=== PATIENT | female | born 1940 | race Caucasian/White ===

== ENCOUNTER → 2016-12-08 | Outpatient (CLI) | payer MEDICARE, BC, MEDICAID ==
[2014-04-24 09:17] VITALS: BP 142/66
[~2016-12-08] MED LIST: ATIVAN0.5 MG PO; CALCIUM 600600 M2 PO; COLACE 100100 MG/CAP PO; MIRALAX 17GM PK1 PKT PO; MULTIPLE VITAMI1 TAB PO; MYLANTA 150 ML150 M1 PO; NORVASC 5MG5 MG/TAB PO; PRAVASTATIN SOD40 MG PO; PROZAC20 MG PO; SYNTHROID0.075 MG PO; TENORMIN25 MG PO; TRAZODONE HCL50 MG PO; TYLENOL 650MG650 M2 PO; VESICARE PO; ZYPREXA5 MG PO
== END ==
LOC: LAB 06:05
DX: E87.1 Hypo-osmolality and hyponatremia (principal); D64.9 Anemia, unspecified

== ENCOUNTER → 2017-01-07 | Outpatient (CLI) | payer MEDICARE, BC, MEDICAID ==
[2014-04-24 09:17] VITALS: BP 142/66
== END ==
LOC: LAB 05:56
DX: E03.4 Atrophy of thyroid (acquired) (principal)

== ENCOUNTER → 2017-02-09 | Outpatient (CLI) | payer MEDICARE, BC, MEDICAID ==
[2014-04-24 09:17] VITALS: BP 142/66
== END ==
LOC: LAB 07:10
DX: E78.5 Hyperlipidemia, unspecified (principal); I12.9 Hypertensive chronic kidney disease with stage 1 through stage 4 chronic kidney disease, or unspecified chronic kidney disease

== ENCOUNTER → 2017-04-20 | Outpatient (CLI) | payer MEDICARE, BC, MEDICAID ==
[2014-04-24 09:17] VITALS: BP 142/66
== END ==
LOC: LAB 05:15
DX: E03.9 Hypothyroidism, unspecified (principal)

== ENCOUNTER → 2017-05-27 | Outpatient (CLI) | payer MEDICARE, BC, MEDICAID ==
[2014-04-24 09:17] VITALS: BP 142/66
[2017-05-27 06:56] LABS: URINE APPEARANCE CLEAR; URINE BILIRUBIN NEGATIVE (NEGATIVE); URINE BLOOD NEGATIVE (NEGATIVE); URINE COLOR YELLOW; URINE GLUCOSE NEGATIVE (NEGATIVE); URINE KETONE NEGATIVE (NEGATIVE); URINE LEUKOCYTE ESTERASE NEGATIVE (NEGATIVE); URINE NITRATE NEGATIVE (NEGATIVE); URINE PROTEIN(semi-quant) NEGATIVE (NEGATIVE); URINE UROBILINOGEN NORMAL (NORMAL)
== END ==
LOC: LAB 05:49
PROVIDERS: Family Medicine
DX: R41.0 Disorientation, unspecified (principal)

== ENCOUNTER → 2017-11-26 | Outpatient (CLI) | payer MEDICARE, BC, MEDICAID ==
[2014-04-24 09:17] VITALS: BP 142/66
[2017-11-26 18:43] LABS: URINE APPEARANCE CLEAR; URINE BILIRUBIN NEGATIVE (NEGATIVE); URINE BLOOD NEGATIVE (NEGATIVE); URINE COLOR YELLOW; URINE GLUCOSE NEGATIVE (NEGATIVE); URINE KETONE NEGATIVE (NEGATIVE); URINE LEUKOCYTE ESTERASE TRACE (NEGATIVE); URINE NITRATE NEGATIVE (NEGATIVE); URINE PROTEIN(semi-quant) 1+ mg/dL (NEGATIVE); URINE UROBILINOGEN NORMAL (NORMAL)
== END ==
LOC: LAB 16:47
PROVIDERS: Family Medicine
DX: R41.82 Altered mental status, unspecified (principal); R46.89 Other symptoms and signs involving appearance and behavior; Z88.1 Allergy status to other antibiotic agents; Z88.5 Allergy status to narcotic agent; Z88.2 Allergy status to sulfonamides; Z88.8 Allergy status to other drugs, medicaments and biological substances

== ENCOUNTER → 2018-02-09 | Outpatient (CLI) | payer MEDICARE, BC, MEDICAID ==
[2014-04-24 09:17] VITALS: BP 142/66
[2018-02-09 15:10] LABS: EOS # 0.3 (0.04-0.40); HEMATOCRIT 35.1 % (37.0-47.0); HEMOGLOBIN 11.6 g/dL (12.5-16.0); MEAN CELL VOLUME 91 fl (78-100); MEAN CORPUSCULAR HEMOGLOBIN 30 pg (27-31); MEAN CORPUSCULAR HGB CONC 33 g/dL (33-37); MEAN PLATELET VOLUME 10.3 fl (7.4-10.4); MONO # 0.6 (0.20-0.80); NEU # 5.6 (1.40-6.50); PLATELET COUNT 350 K/mm3 (130-400); RED BLOOD COUNT 3.88 M/mm3 (4.10-5.30); RED CELL DISTRIBUTION WIDTH 13.3 % (11.5-14.5); WHITE BLOOD COUNT 8.4 K/mm3 (4.8-10.8)
[2018-02-09 15:45] LABS: ALBUMIN 3.8 g/dL (3.5-5.0); BUN/CREATININE RATIO 13.1 (6.0-26.0); CALCIUM 8.9 mg/dL (8.4-10.2); POTASSIUM 4.4 mmol/L (3.6-5.0); TOTAL BILIRUBIN 0.4 mg/dL (0.2-1.3); TOTAL PROTEIN 6.8 g/dL (6.3-8.2)
== END ==
LOC: LAB 14:22
PROVIDERS: Family Medicine
DX: I12.9 Hypertensive chronic kidney disease with stage 1 through stage 4 chronic kidney disease, or unspecified chronic kidney disease (principal); N18.9 Chronic kidney disease, unspecified

== ENCOUNTER → 2018-03-09 | Outpatient (CLI) | payer MEDICARE, BC, MEDICAID ==
[2014-04-24 09:17] VITALS: BP 142/66
[2018-03-10 01:09] LABS: T3 TOTAL 71 ng/dL (87-178)
== END ==
LOC: LAB 05:20
PROVIDERS: Family Medicine
DX: E03.9 Hypothyroidism, unspecified (principal)

== ENCOUNTER → 2018-03-16 | Outpatient (CLI) | payer MEDICARE, BC, MEDICAID ==
[2014-04-24 09:17] VITALS: BP 142/66
[2018-03-16 13:18] LABS: PH-URINE 6.5 (5.0 - 8.0); URINE APPEARANCE CLEAR; URINE BILIRUBIN NEGATIVE (NEGATIVE); URINE BLOOD NEGATIVE (NEGATIVE); URINE COLOR YELLOW; URINE GLUCOSE NEGATIVE (NEGATIVE); URINE KETONE NEGATIVE (NEGATIVE); URINE LEUKOCYTE ESTERASE NEGATIVE (NEGATIVE); URINE NITRATE NEGATIVE (NEGATIVE); URINE PROTEIN(semi-quant) TRACE mg/dL (NEGATIVE); URINE UROBILINOGEN NORMAL (NORMAL); URINE WBC 0-1 /hpf (0-3)
== END ==
LOC: LAB 12:52
PROVIDERS: Family Medicine
DX: R42 Dizziness and giddiness (principal); R45.1 Restlessness and agitation

== ENCOUNTER → 2018-06-10 | Outpatient (CLI) | payer MEDICARE, BC, MEDICAID ==
[2014-04-24 09:17] VITALS: BP 142/66
== END ==
LOC: LAB 07:20
DX: E03.9 Hypothyroidism, unspecified (principal)

== ENCOUNTER → 2018-06-15 | Outpatient (CLI) | payer MEDICARE, BC, MEDICAID ==
[2014-04-24 09:17] VITALS: BP 142/66
[2018-06-15 12:14] LABS: URINE APPEARANCE CLEAR; URINE BILIRUBIN NEGATIVE (NEGATIVE); URINE COLOR YELLOW; URINE GLUCOSE NEGATIVE (NEGATIVE); URINE KETONE NEGATIVE (NEGATIVE); URINE NITRATE NEGATIVE (NEGATIVE); URINE PROTEIN(semi-quant) 1+ mg/dL (NEGATIVE); URINE UROBILINOGEN NORMAL (NORMAL)
[2018-06-15 12:15] LABS: URINE BLOOD NEGATIVE (NEGATIVE); URINE LEUKOCYTE ESTERASE NEGATIVE (NEGATIVE); URINE WBC 0-1 /hpf (0-3)
== END ==
LOC: LAB 10:55
PROVIDERS: Family Medicine
DX: R41.0 Disorientation, unspecified (principal)

== ENCOUNTER 2018-08-15 23:21 | Emergency (ER) | payer MEDICARE, BC, MEDICAID ==
[~2018-08-15] VITALS: Wt 62.8 kg
[2018-08-15] MEDS ORDERED: COLACE100 M1 PO (23:54)
[2018-08-15] MEDS ORDERED: ARTIFICIAL TEAR1512 OP (23:54)
[2018-08-15] MEDS ORDERED: TIROSINT75 MC1 PO (23:56)
[2018-08-15] MEDS ORDERED: LOPRESSOR 225 MG/TAB PO (23:56)
[2018-08-15] MEDS ORDERED: AMLODIPINE BESYL5 MG PO (23:57)
[2018-08-15] MEDS ORDERED: MUCINEX 60600 MG/TA1 PO (23:57)
[2018-08-15] MEDS ORDERED: FLUOXETINE HCL20 MG PO (23:57)
[2018-08-15] MEDS ORDERED: ZYRTEC ALLERGY10 MG PO (23:58)
[2018-08-16 00:24] LABS: ALBUMIN 3.9 g/dL (3.5-5.0); POTASSIUM 4.4 mmol/L (3.6-5.0); TOTAL BILIRUBIN 0.4 mg/dL (0.2-1.3); TOTAL PROTEIN 6.6 g/dL (6.3-8.2)
[2018-08-16 00:29] LABS: HEMATOCRIT 34.3 % (37.0-47.0); HEMOGLOBIN 11.4 g/dL (12.5-16.0); MEAN CELL VOLUME 88 fl (78-100); MEAN CORPUSCULAR HEMOGLOBIN 29 pg (27-31); MEAN CORPUSCULAR HGB CONC 33 g/dL (33-37); MEAN PLATELET VOLUME 9.8 fl (7.4-10.4); PLATELET COUNT 302 K/mm3 (130-400); RED BLOOD COUNT 3.92 M/mm3 (4.10-5.30); RED CELL DISTRIBUTION WIDTH 13.6 % (11.5-14.5); WHITE BLOOD COUNT 7.7 K/mm3 (4.8-10.8)
[2018-08-16 00:32] LABS: LYMPHOCYTE 42 % (20-51); MONOCYTE 7 % (3-10); NEUTROPHILS 43 % (42-75)
[2018-08-16 00:37] LABS: URINE WBC 0 /hpf (0-3)
[2018-08-16 00:46] LABS: PH-URINE 7.5 (5.0 - 8.0); URINE APPEARANCE CLEAR; URINE BILIRUBIN NEGATIVE (NEGATIVE); URINE BLOOD NEGATIVE (NEGATIVE); URINE COLOR YELLOW; URINE GLUCOSE NEGATIVE (NEGATIVE); URINE KETONE NEGATIVE (NEGATIVE); URINE LEUKOCYTE ESTERASE NEGATIVE (NEGATIVE); URINE NITRATE NEGATIVE (NEGATIVE); URINE PROTEIN(semi-quant) NEGATIVE (NEGATIVE); URINE UROBILINOGEN NORMAL (NORMAL)
[2018-08-16 03:02] VITALS: BP 146/79
== END 2018-08-16 03:02 | disposition home or self-care (01) ==
LOC: ED 23:21
PROVIDERS: Nurse Practitioner
DX: J98.9 Respiratory disorder, unspecified (principal); B97.89 Other viral agents as the cause of diseases classified elsewhere; E87.1 Hypo-osmolality and hyponatremia; J44.9 Chronic obstructive pulmonary disease, unspecified; Z87.891 Personal history of nicotine dependence; E03.9 Hypothyroidism, unspecified; I12.9 Hypertensive chronic kidney disease with stage 1 through stage 4 chronic kidney disease, or unspecified chronic kidney disease; N18.9 Chronic kidney disease, unspecified; Z90.5 Acquired absence of kidney; F32.9 Major depressive disorder, single episode, unspecified; F41.9 Anxiety disorder, unspecified; K59.00 Constipation, unspecified; Z88.1 Allergy status to other antibiotic agents; Z88.2 Allergy status to sulfonamides; Z88.8 Allergy status to other drugs, medicaments and biological substances; Z79.899 Other long term (current) drug therapy
CPT/HCPCS: J2930; J7030

== ENCOUNTER → 2018-08-25 | Outpatient (CLI) | payer MEDICARE, BC, MEDICAID ==
[2018-08-16 03:02] VITALS: BP 146/79
[~2018-08-25] MED LIST changes: +AMLODIPINE BESYL5 MG PO; +ARTIFICIAL TEAR1512 OP; +COLACE100 M1 PO; +FLUOXETINE HCL20 MG PO; +LOPRESSOR 225 MG/TAB PO; +MUCINEX 60600 MG/TA1 PO; +TIROSINT75 MC1 PO; +ZYRTEC ALLERGY10 MG PO
[2018-08-25 06:14] LABS: ALBUMIN 3.4 g/dL (3.5-5.0); CALCIUM 9.2 mg/dL (8.4-10.2); TOTAL BILIRUBIN 0.5 mg/dL (0.2-1.3); TOTAL PROTEIN 6.2 g/dL (6.3-8.2)
[2018-08-25 06:15] LABS: HEMATOCRIT 32.7 % (37.0-47.0); HEMOGLOBIN 10.8 g/dL (12.5-16.0); MEAN PLATELET VOLUME 9.8 fl (7.4-10.4); RED BLOOD COUNT 3.75 M/mm3 (4.10-5.30); RED CELL DISTRIBUTION WIDTH 13.4 % (11.5-14.5); WHITE BLOOD COUNT 9.5 K/mm3 (4.8-10.8)
== END ==
LOC: LAB 05:12
PROVIDERS: Family Medicine
DX: E87.1 Hypo-osmolality and hyponatremia (principal); D64.9 Anemia, unspecified

== ENCOUNTER → 2018-09-12 | Outpatient (CLI) | payer MEDICARE, BC, MEDICAID ==
[2018-08-16 03:02] VITALS: BP 146/79
[2018-09-12 10:34] LABS: EOS # 0.5 (0.04-0.40); EOS % 5.3 % (1.0-5.0); HEMATOCRIT 33.1 % (37.0-47.0); LYMPH# 3.1 (1.50-4.00); MEAN CELL VOLUME 88 fl (78-100); MEAN CORPUSCULAR HEMOGLOBIN 29 pg (27-31); MEAN CORPUSCULAR HGB CONC 33 g/dL (33-37); MEAN PLATELET VOLUME 10.2 fl (7.4-10.4); MONO # 0.7 (0.20-0.80); NEU # 4.3 (1.40-6.50); PLATELET COUNT 353 K/mm3 (130-400); RED BLOOD COUNT 3.75 M/mm3 (4.10-5.30); RED CELL DISTRIBUTION WIDTH 13.6 % (11.5-14.5); WHITE BLOOD COUNT 8.6 K/mm3 (4.8-10.8)
[2018-09-12 10:39] LABS: ALBUMIN 3.2 g/dL (3.5-5.0); CALCIUM 9.3 mg/dL (8.4-10.2); POTASSIUM 4.5 mmol/L (3.6-5.0); TOTAL BILIRUBIN 0.4 mg/dL (0.2-1.3); TOTAL PROTEIN 5.8 g/dL (6.3-8.2)
== END ==
LOC: LAB 07:10
PROVIDERS: Family Medicine
DX: I12.9 Hypertensive chronic kidney disease with stage 1 through stage 4 chronic kidney disease, or unspecified chronic kidney disease (principal); N18.9 Chronic kidney disease, unspecified; E03.9 Hypothyroidism, unspecified; D64.9 Anemia, unspecified

== ENCOUNTER 2018-11-07 15:55 | Emergency (ER) | payer MEDICARE, BC, MEDICAID ==
[~2018-11-07] VITALS: Ht 165.1 cm; Wt 61.8 kg
[2018-11-07] MEDS ORDERED: TYLOPHEN500 M2 PO (16:22)
[2018-11-07] MEDS ORDERED: ALBUTEROL2.5 MG/3 M IH (16:23)
[2018-11-07] MEDS ORDERED: FLEET ENEM1 BOT/133 RC ×2 (16:24)
[2018-11-07] MEDS ORDERED: DULCOLAX S10 MG/SUPP RC (16:28)
[2018-11-07] MEDS ORDERED: BIOTENE DRY MO237 ML MM (16:29)
[2018-11-07] MEDS ORDERED: CHILDREN'S ASPI81 M1 PO (16:30)
[2018-11-07 17:58] LABS: EOS # 0.4 (0.04-0.40); EOS % 4.1 % (1.0-5.0); HEMATOCRIT 31.1 % (37.0-47.0); HEMOGLOBIN 10.3 g/dL (12.5-16.0); LYMPH# 3.3 (1.50-4.00); MEAN CELL VOLUME 87 fl (78-100); MEAN CORPUSCULAR HEMOGLOBIN 29 pg (27-31); MEAN CORPUSCULAR HGB CONC 33 g/dL (33-37); MONO # 0.8 (0.20-0.80); NEU # 6.1 (1.40-6.50); PLATELET COUNT 373 K/mm3 (130-400); RED BLOOD COUNT 3.56 M/mm3 (4.10-5.30); WHITE BLOOD COUNT 10.8 K/mm3 (4.8-10.8)
[2018-11-07 18:05] LABS: ALBUMIN 3.4 g/dL (3.5-5.0); CALCIUM 8.9 mg/dL (8.4-10.2); POTASSIUM 4.2 mmol/L (3.6-5.0); TOTAL BILIRUBIN 0.3 mg/dL (0.2-1.3); TOTAL PROTEIN 6.3 g/dL (6.3-8.2)
[2018-11-07 18:52] LABS: URINE APPEARANCE CLEAR; URINE COLOR YELLOW; URINE GLUCOSE NEGATIVE (NEGATIVE); URINE KETONE NEGATIVE (NEGATIVE); URINE PROTEIN(semi-quant) TRACE mg/dL (NEGATIVE)
[2018-11-07 18:53] LABS: URINE BILIRUBIN NEGATIVE (NEGATIVE); URINE BLOOD NEGATIVE (NEGATIVE); URINE LEUKOCYTE ESTERASE NEGATIVE (NEGATIVE); URINE NITRATE NEGATIVE (NEGATIVE); URINE UROBILINOGEN NORMAL (NORMAL); URINE WBC 0-1 /hpf (0-3)
[2018-11-07 23:43] VITALS: BP 159/68
== END 2018-11-07 20:23 | disposition home or self-care (01) ==
LOC: ED 15:55
PROVIDERS: Nurse Practitioner
DX: S22.42XA Multiple fractures of ribs, left side, initial encounter for closed fracture (principal); M25.559 Pain in unspecified hip; I10 Essential (primary) hypertension; E78.5 Hyperlipidemia, unspecified; F31.9 Bipolar disorder, unspecified; F41.9 Anxiety disorder, unspecified; J44.9 Chronic obstructive pulmonary disease, unspecified; D64.9 Anemia, unspecified; F03.90 Unspecified dementia, unspecified severity, without behavioral disturbance, psychotic disturbance, mood disturbance, and anxiety; Z90.49 Acquired absence of other specified parts of digestive tract; Z85.528 Personal history of other malignant neoplasm of kidney; W17.89XA Other fall from one level to another, initial encounter
CPT/HCPCS: J7030

== ENCOUNTER → 2018-11-17 | Outpatient (CLI) | payer MEDICARE, BC, MEDICAID ==
[~2018-11-17] VITALS: Ht 165.1 cm; Wt 61.8 kg
[~2018-11-17] MED LIST changes: +ALBUTEROL2.5 MG/3 M IH; +BIOTENE DRY MO237 ML MM; +CHILDREN'S ASPI81 M1 PO; +DULCOLAX S10 MG/SUPP RC; +FLEET ENEM1 BOT/133 RC; +TYLOPHEN500 M2 PO
[2018-11-17 08:54] VITALS: BP 144/82
[2018-11-17 12:40] LABS: CALCIUM 9.2 mg/dL (8.4-10.2); POTASSIUM 3.8 mmol/L (3.6-5.0)
== END ==
LOC: AMSURD 07:54 → LAB 08:18 → AMSURD 08:18
PROVIDERS: Family Medicine
DX: E87.1 Hypo-osmolality and hyponatremia (principal)
CPT/HCPCS: J7030

== ENCOUNTER → 2018-12-12 | Outpatient (CLI) | payer MEDICARE, BC, MEDICAID ==
[2018-11-17 08:54] VITALS: BP 144/82
[2018-12-12 10:52] LABS: ALBUMIN 3.9 g/dL (3.4-4.8); CALCIUM 10.2 mg/dL (8.4-10.2); POTASSIUM 4.1 mmol/L (3.5-5.1); TOTAL BILIRUBIN 0.4 mg/dL (0.2-1.2)
== END ==
LOC: LAB 06:15
PROVIDERS: Family Medicine
DX: I10 Essential (primary) hypertension (principal); E87.1 Hypo-osmolality and hyponatremia; R06.02 Shortness of breath

== ENCOUNTER → 2018-12-15 | Outpatient (CLI) | payer MEDICARE, BC, MEDICAID ==
[2018-11-17 08:54] VITALS: BP 144/82
[2018-12-15 07:22] LABS: CALCIUM 9.6 mg/dL (8.4-10.2); POTASSIUM 4.1 mmol/L (3.5-5.1)
== END ==
LOC: LAB 05:25
PROVIDERS: Family Medicine
DX: E87.1 Hypo-osmolality and hyponatremia (principal)

== ENCOUNTER → 2019-01-26 | Outpatient (CLI) | payer MEDICARE, BC, MEDICAID ==
[2018-11-17 08:54] VITALS: BP 144/82
[2019-01-26 15:22] LABS: EOS # 0.4 (0.04-0.40); EOS % 4.1 % (1.0-5.0); HEMATOCRIT 30.2 % (37.0-47.0); HEMOGLOBIN 9.8 g/dL (12.5-16.0); LYMPH# 2.7 (1.50-4.00); MEAN CELL VOLUME 92 fl (78-100); MEAN CORPUSCULAR HEMOGLOBIN 30 pg (27-31); MEAN CORPUSCULAR HGB CONC 33 g/dL (33-37); MEAN PLATELET VOLUME 9.2 fl (7.4-10.4); MONO # 0.6 (0.20-0.80); NEU # 5.7 (1.40-6.50); PLATELET COUNT 371 K/mm3 (130-400); RED BLOOD COUNT 3.27 M/mm3 (4.10-5.30); RED CELL DISTRIBUTION WIDTH 14.3 % (11.5-14.5); WHITE BLOOD COUNT 9.4 K/mm3 (4.8-10.8)
[2019-01-26 15:25] LABS: POTASSIUM 4.5 mmol/L (3.5-5.1)
[2019-01-26 15:26] LABS: CALCIUM 8.9 mg/dL (8.3-10.5)
[2019-01-26 17:09] LABS: URINE APPEARANCE HAZY; URINE BILIRUBIN NEGATIVE (NEGATIVE); URINE BLOOD NEGATIVE (NEGATIVE); URINE COLOR YELLOW; URINE GLUCOSE NEGATIVE (NEGATIVE); URINE KETONE TR (NEGATIVE); URINE LEUKOCYTE ESTERASE NEGATIVE (NEGATIVE); URINE NITRATE NEGATIVE (NEGATIVE); URINE PROTEIN(semi-quant) 1+ mg/dL (NEGATIVE); URINE UROBILINOGEN NORMAL (NORMAL)
== END ==
LOC: LAB 15:09
PROVIDERS: Family Medicine
DX: R50.9 Fever, unspecified (principal); R32 Unspecified urinary incontinence

== ENCOUNTER → 2019-02-03 | Outpatient (CLI) | payer MEDICARE, BC, MEDICAID ==
[2018-11-17 08:54] VITALS: BP 144/82
[2019-02-03 11:27] LABS: PH-URINE 6.5 (5.0 - 8.0); URINE APPEARANCE CLEAR; URINE BILIRUBIN NEGATIVE (NEGATIVE); URINE BLOOD NEGATIVE (NEGATIVE); URINE COLOR YELLOW; URINE GLUCOSE NEGATIVE (NEGATIVE); URINE KETONE NEGATIVE (NEGATIVE); URINE LEUKOCYTE ESTERASE NEGATIVE (NEGATIVE); URINE NITRATE NEGATIVE (NEGATIVE); URINE PROTEIN(semi-quant) TRACE mg/dL (NEGATIVE); URINE UROBILINOGEN NORMAL (NORMAL); URINE WBC 0-1 /hpf (0-3)
== END ==
LOC: LAB 10:58
PROVIDERS: Family Medicine
DX: N39.0 Urinary tract infection, site not specified (principal)

== ENCOUNTER → 2019-02-25 | Outpatient (CLI) | payer MEDICARE, BC, MEDICAID ==
[2018-11-17 08:54] VITALS: BP 144/82
[2019-02-25 11:07] LABS: URINE APPEARANCE HAZY; URINE COLOR YELLOW
[2019-02-25 11:08] LABS: URINE BILIRUBIN NEGATIVE (NEGATIVE); URINE BLOOD NEGATIVE (NEGATIVE); URINE GLUCOSE NEGATIVE (NEGATIVE); URINE KETONE NEGATIVE (NEGATIVE); URINE LEUKOCYTE ESTERASE 1+ (NEGATIVE); URINE NITRATE NEGATIVE (NEGATIVE); URINE PROTEIN(semi-quant) TRACE mg/dL (NEGATIVE); URINE UROBILINOGEN NORMAL (NORMAL); URINE WBC 16-30 /hpf (0-3)
== END ==
LOC: LAB 02:00
PROVIDERS: Family Medicine
DX: N39.0 Urinary tract infection, site not specified (principal); R41.0 Disorientation, unspecified

== ENCOUNTER → 2019-02-27 | Outpatient (CLI) | payer MEDICARE, BC, MEDICAID ==
[2018-11-17 08:54] VITALS: BP 144/82
== END ==
LOC: RAD 10:01
DX: I67.82 Cerebral ischemia (principal); S09.90XA Unspecified injury of head, initial encounter; R41.0 Disorientation, unspecified; W19.XXXA Unspecified fall, initial encounter

== ENCOUNTER → 2019-03-25 | Outpatient (CLI) | payer MEDICARE, BC, MEDICAID ==
[2018-11-17 08:54] VITALS: BP 144/82
[2019-03-25 15:32] LABS: EOS # 0.4 (0.04-0.40); EOS % 3.9 % (1.0-5.0); HEMATOCRIT 34.7 % (37.0-47.0); HEMOGLOBIN 11.3 g/dL (12.5-16.0); LYMPH# 2.5 (1.50-4.00); MEAN CELL VOLUME 92 fl (78-100); MEAN CORPUSCULAR HEMOGLOBIN 30 pg (27-31); MEAN CORPUSCULAR HGB CONC 33 g/dL (33-37); MEAN PLATELET VOLUME 9.6 fl (7.4-10.4); MONO # 0.8 (0.20-0.80); NEU # 7.6 (1.40-6.50); PLATELET COUNT 370 K/mm3 (130-400); RED BLOOD COUNT 3.78 M/mm3 (4.10-5.30); RED CELL DISTRIBUTION WIDTH 13.4 % (11.5-14.5); WHITE BLOOD COUNT 11.3 K/mm3 (4.8-10.8)
== END ==
LOC: LAB 15:10
PROVIDERS: Family Medicine
DX: R41.0 Disorientation, unspecified (principal)

== ENCOUNTER → 2019-03-26 | Outpatient (CLI) | payer MEDICARE, BC, MEDICAID ==
[2018-11-17 08:54] VITALS: BP 144/82
[2019-03-26 13:00] LABS: URINE APPEARANCE HAZY; URINE COLOR YELLOW
[2019-03-26 13:01] LABS: URINE BILIRUBIN NEGATIVE (NEGATIVE); URINE BLOOD TRACE (NEGATIVE); URINE GLUCOSE NEGATIVE (NEGATIVE); URINE KETONE NEGATIVE (NEGATIVE); URINE LEUKOCYTE ESTERASE 1+ (NEGATIVE); URINE NITRATE NEGATIVE (NEGATIVE); URINE PROTEIN(semi-quant) TRACE mg/dL (NEGATIVE); URINE UROBILINOGEN NORMAL (NORMAL)
[2019-03-26 13:02] LABS: URINE MUCUS PRESENT (NOT PRESENT)
== END ==
LOC: LAB 10:32
PROVIDERS: Family Medicine
DX: N39.0 Urinary tract infection, site not specified (principal)

== ENCOUNTER 2019-04-27 18:00 | Emergency (ER) | payer MEDICARE, BC, MEDICAID ==
[~2019-04-27] VITALS: Wt 57.2 kg
[~2019-04-27 18:00] MED LIST changes: +ATIVAN1 M1 PO; +PYRIDIUM100 M1 PO; +SYNTHROID0.05 MG PO; +VENLAFAXINE HCL75 M3 PO
[2019-04-27 18:53] LABS: EOS # 0.3 (0.04-0.40); HEMATOCRIT 31.2 % (37.0-47.0); HEMOGLOBIN 10.1 g/dL (12.5-16.0); LYMPH# 2.2 (1.50-4.00); MEAN CELL VOLUME 93 fl (78-100); MEAN CORPUSCULAR HEMOGLOBIN 30 pg (27-31); MEAN CORPUSCULAR HGB CONC 32 g/dL (33-37); MEAN PLATELET VOLUME 9.2 fl (7.4-10.4); MONO # 0.5 (0.20-0.80); NEU # 4.3 (1.40-6.50); PLATELET COUNT 347 K/mm3 (130-400); RED BLOOD COUNT 3.37 M/mm3 (4.10-5.30); RED CELL DISTRIBUTION WIDTH 13.9 % (11.5-14.5); WHITE BLOOD COUNT 7.4 K/mm3 (4.8-10.8)
[2019-04-27 19:02] LABS: ALBUMIN 3.5 g/dL (3.4-4.8); POTASSIUM 4.5 mmol/L (3.5-5.1)
[2019-04-27 19:03] LABS: CALCIUM 9.2 mg/dL (8.3-10.5)
[2019-04-27 19:05] LABS: TOTAL PROTEIN 6.3 g/dL (6.2-8.1)
[2019-04-27 19:06] LABS: TOTAL BILIRUBIN 0.3 mg/dL (0.2-1.2)
[2019-04-27 19:44] LABS: URINE APPEARANCE CLEAR; URINE BILIRUBIN NEGATIVE (NEGATIVE); URINE BLOOD NEGATIVE (NEGATIVE); URINE COLOR YELLOW; URINE GLUCOSE NEGATIVE (NEGATIVE); URINE KETONE NEGATIVE (NEGATIVE); URINE LEUKOCYTE ESTERASE NEGATIVE (NEGATIVE); URINE NITRATE NEGATIVE (NEGATIVE); URINE PROTEIN(semi-quant) 1+ mg/dL (NEGATIVE); URINE UROBILINOGEN NORMAL (NORMAL)
[2019-04-27 21:00] VITALS: BP 128/61
== END 2019-04-27 21:00 ==
LOC: ED 18:00
PROVIDERS: Nurse Practitioner Family
DX: S50.02XA Contusion of left elbow, initial encounter (principal); F03.90 Unspecified dementia, unspecified severity, without behavioral disturbance, psychotic disturbance, mood disturbance, and anxiety; R40.2410 Glasgow coma scale score 13-15, unspecified time; I10 Essential (primary) hypertension; F17.210 Nicotine dependence, cigarettes, uncomplicated; F41.9 Anxiety disorder, unspecified; F32.9 Major depressive disorder, single episode, unspecified; Z90.5 Acquired absence of kidney; Z90.49 Acquired absence of other specified parts of digestive tract; Z98.890 Other specified postprocedural states; W19.XXXA Unspecified fall, initial encounter; Y92.129 Unspecified place in nursing home as the place of occurrence of the external cause

== ENCOUNTER 2019-04-29 22:16 | Emergency (ER) | payer MEDICARE, BC, MEDICAID ==
[2019-04-30] MEDS ORDERED: HALDOL 1MG T1 MG/TAB PO (00:17)
[2019-04-30 00:35] VITALS: BP 148/86
== END 2019-04-30 00:40 | disposition home or self-care (01) ==
LOC: ED 22:16
DX: S01.112A Laceration without foreign body of left eyelid and periocular area, initial encounter (principal); T50.995A Adverse effect of other drugs, medicaments and biological substances, initial encounter; F03.91 Unspecified dementia, unspecified severity, with behavioral disturbance; F31.9 Bipolar disorder, unspecified; F41.9 Anxiety disorder, unspecified; Z90.5 Acquired absence of kidney; Z85.528 Personal history of other malignant neoplasm of kidney; W18.30XA Fall on same level, unspecified, initial encounter; Y92.099 Unspecified place in other non-institutional residence as the place of occurrence of the external cause

== ENCOUNTER → 2019-06-14 | Outpatient (CLI) | payer MEDICARE, BC, MEDICAID ==
[2019-05-01 17:05] VITALS: BP 141/76
[~2019-06-14] MED LIST changes: +HALDOL 1MG T1 MG/TAB PO
== END ==
LOC: LAB 05:28
DX: E03.9 Hypothyroidism, unspecified (principal)

== ENCOUNTER → 2019-06-27 | Outpatient (CLI) | payer MEDICARE, BC, MEDICAID ==
[2019-05-01 17:05] VITALS: BP 141/76
[2019-06-27 07:01] LABS: URINE APPEARANCE CLEAR; URINE BILIRUBIN NEGATIVE (NEGATIVE); URINE BLOOD NEGATIVE (NEGATIVE); URINE COLOR YELLOW; URINE GLUCOSE NEGATIVE (NEGATIVE); URINE KETONE NEGATIVE (NEGATIVE); URINE LEUKOCYTE ESTERASE NEGATIVE (NEGATIVE); URINE NITRATE NEGATIVE (NEGATIVE); URINE PROTEIN(semi-quant) TRACE mg/dL (NEGATIVE); URINE UROBILINOGEN NORMAL (NORMAL); URINE WBC 0-1 /hpf (0-3)
== END ==
LOC: LAB 02:47
PROVIDERS: Family Medicine
DX: R41.82 Altered mental status, unspecified (principal)

== ENCOUNTER 2019-08-07 13:56 | Emergency (ER) | payer MEDICARE, BC, MEDICAID ==
[2019-08-07] MEDS ORDERED: LOPRESSOR 225 MG/TAB PO (16:23)
[2019-08-07 16:49] LABS: EOS # 0.4 (0.04-0.40); EOS % 3.5 % (1.0-5.0); HEMATOCRIT 36.2 % (37.0-47.0); HEMOGLOBIN 11.5 g/dL (12.5-16.0); LYMPH# 2.9 (1.50-4.00); MEAN CELL VOLUME 90 fl (78-100); MEAN CORPUSCULAR HEMOGLOBIN 29 pg (27-31); MEAN CORPUSCULAR HGB CONC 32 g/dL (33-37); MEAN PLATELET VOLUME 10.4 fl (7.4-10.4); MONO # 0.8 (0.20-0.80); NEU # 5.9 (1.40-6.50); PLATELET COUNT 266 K/mm3 (130-400); RED BLOOD COUNT 4.02 M/mm3 (4.10-5.30); RED CELL DISTRIBUTION WIDTH 13.9 % (11.5-14.5)
[2019-08-07 16:55] LABS: ALBUMIN 3.7 g/dL (3.4-4.8); POTASSIUM 4.2 mmol/L (3.5-5.1)
[2019-08-07 16:56] LABS: CALCIUM 9.6 mg/dL (8.3-10.5)
[2019-08-07] MEDS ORDERED: HALDOL .5M0.5 MG/TAB PO (16:56)
[2019-08-07 16:59] LABS: TOTAL BILIRUBIN 0.3 mg/dL (0.2-1.2)
[2019-08-07 17:50] VITALS: BP 122/70
[2019-08-07 18:03] LABS: URINE APPEARANCE CLEAR; URINE BILIRUBIN NEGATIVE (NEGATIVE); URINE BLOOD TRACE (NEGATIVE); URINE COLOR YELLOW; URINE GLUCOSE NEGATIVE (NEGATIVE); URINE KETONE NEGATIVE (NEGATIVE); URINE LEUKOCYTE ESTERASE NEGATIVE (NEGATIVE); URINE NITRATE NEGATIVE (NEGATIVE); URINE PROTEIN(semi-quant) 1+ mg/dL (NEGATIVE); URINE UROBILINOGEN NORMAL (NORMAL)
[2019-08-07 18:04] LABS: URINE MUCUS PRESENT (NOT PRESENT)
== END 2019-08-07 17:07 | disposition other institution (70) ==
LOC: ED 13:56
PROVIDERS: Nurse Practitioner Primary Care; Physician Assistant
DX: J44.1 Chronic obstructive pulmonary disease with (acute) exacerbation (principal); J18.9 Pneumonia, unspecified organism; N28.9 Disorder of kidney and ureter, unspecified; I10 Essential (primary) hypertension; E78.5 Hyperlipidemia, unspecified; E03.9 Hypothyroidism, unspecified; F31.9 Bipolar disorder, unspecified; F03.90 Unspecified dementia, unspecified severity, without behavioral disturbance, psychotic disturbance, mood disturbance, and anxiety; Z87.891 Personal history of nicotine dependence
CPT/HCPCS: J2930

== ENCOUNTER 2019-08-07 17:07 | Inpatient (IN) | payer MEDICARE, BC, MEDICAID ==
[~2019-08-07] VITALS: Ht 162.6 cm; Wt 54.0 kg
[~2019-08-07 17:07] MED LIST changes: +HALDOL .5M0.5 MG/TAB PO
[2019-08-07 18:16] VITALS: BP 131/64
[2019-08-07 18:17] VITALS: BP 131/64
[2019-08-07 22:20] VITALS: BP 110/62
[2019-08-08 02:40] VITALS: BP 105/65
[2019-08-08 06:30] VITALS: BP 134/73
[2019-08-08 06:56] LABS: HEMATOCRIT 30.9 % (37.0-47.0); HEMOGLOBIN 9.9 g/dL (12.5-16.0); LYMPH# 0.9 (1.50-4.00); MEAN CELL VOLUME 90 fl (78-100); MEAN CORPUSCULAR HEMOGLOBIN 29 pg (27-31); MEAN CORPUSCULAR HGB CONC 32 g/dL (33-37); MEAN PLATELET VOLUME 10.7 fl (7.4-10.4); MONO # 0.1 (0.20-0.80); NEU # 3.4 (1.40-6.50); PLATELET COUNT 247 K/mm3 (130-400); RED BLOOD COUNT 3.45 M/mm3 (4.10-5.30); RED CELL DISTRIBUTION WIDTH 13.8 % (11.5-14.5); WHITE BLOOD COUNT 4.4 K/mm3 (4.8-10.8)
[2019-08-08 07:05] LABS: CALCIUM 8.6 mg/dL (8.3-10.5)
[2019-08-08 10:06] VITALS: BP 160/80
[2019-08-08 14:15] VITALS: BP 149/79
[2019-08-08 18:00] VITALS: BP 162/85
[2019-08-08 22:24] VITALS: BP 127/73
[2019-08-09 02:00] VITALS: BP 139/73
[2019-08-09 06:06] VITALS: BP 153/80
[2019-08-09 07:55] LABS: HEMOGLOBIN 9.7 g/dL (12.5-16.0); MEAN CELL VOLUME 88 fl (78-100); MEAN CORPUSCULAR HEMOGLOBIN 29 pg (27-31); MEAN CORPUSCULAR HGB CONC 32 g/dL (33-37); MEAN PLATELET VOLUME 10.6 fl (7.4-10.4); PLATELET COUNT 274 K/mm3 (130-400); RED CELL DISTRIBUTION WIDTH 13.8 % (11.5-14.5); WHITE BLOOD COUNT 12.5 K/mm3 (4.8-10.8)
[2019-08-09 07:59] LABS: POTASSIUM 3.6 mmol/L (3.5-5.1)
[2019-08-09 08:01] LABS: CALCIUM 8.8 mg/dL (8.3-10.5)
[2019-08-09 08:03] LABS: BAND 5 % (0-10); LYMPHOCYTE 7 % (20-51); MONOCYTE 4 % (3-10); NEUTROPHILS 84 % (42-75)
[2019-08-09 10:20] VITALS: BP 156/73
[2019-08-09 14:00] VITALS: BP 161/84
[2019-08-09 18:00] VITALS: BP 162/68
[2019-08-09 21:52] VITALS: BP 118/79
[2019-08-10 01:39] VITALS: BP 152/82
[2019-08-10 05:48] LABS: HEMATOCRIT 32.4 % (37.0-47.0); HEMOGLOBIN 10.8 g/dL (12.5-16.0); MEAN CELL VOLUME 87 fl (78-100); MEAN CORPUSCULAR HEMOGLOBIN 29 pg (27-31); MEAN CORPUSCULAR HGB CONC 33 g/dL (33-37); PLATELET COUNT 314 K/mm3 (130-400); RED BLOOD COUNT 3.74 M/mm3 (4.10-5.30); RED CELL DISTRIBUTION WIDTH 13.8 % (11.5-14.5); WHITE BLOOD COUNT 14.8 K/mm3 (4.8-10.8)
[2019-08-10 05:57] VITALS: BP 139/69
[2019-08-10 06:31] LABS: POTASSIUM 2.9 mmol/L (3.5-5.1)
[2019-08-10 06:34] LABS: LYMPHOCYTE 10 % (20-51); MONOCYTE 2 % (3-10); NEUTROPHILS 88 % (42-75); NUCLEATED RED BLOOD CELL 1 (0-6); OVALOCYTES 1+; TEAR DROP CELLS 1+
[2019-08-10 10:29] VITALS: BP 143/78
[2019-08-10] MEDS ORDERED: ASPIRIN 32325 MG/TAB PO (11:46)
[2019-08-10] MEDS ORDERED: LOPRESSOR 225 MG/TAB PO (11:46)
[2019-08-10] MEDS ORDERED: AUGMENTIN 875-1 EAC1 PO (11:47)
[2019-08-10] MEDS ORDERED: PREDNISONE20 M1 PO (11:47)
[2019-08-10] MEDS ORDERED: MUCUS RELIEF400 M1 PO (11:47)
[2019-08-10 12:31] VITALS: BP 143/78
[2019-08-10 13:08] LABS: POTASSIUM 3.6 mmol/L (3.5-5.1)
[2019-08-10 13:09] LABS: CALCIUM 9.1 mg/dL (8.3-10.5)
[2019-08-10 14:19] VITALS: BP 163/75
== END 2019-08-10 14:55 | disposition home or self-care (01) | DRG 192 ==
LOC: MED/SURG 17:07
PROVIDERS: Nurse Practitioner Primary Care; ADMIT Physician Assistant
DX: J44.1 Chronic obstructive pulmonary disease with (acute) exacerbation (principal); E03.9 Hypothyroidism, unspecified; I48.91 Unspecified atrial fibrillation; I10 Essential (primary) hypertension; E05.90 Thyrotoxicosis, unspecified without thyrotoxic crisis or storm; F03.90 Unspecified dementia, unspecified severity, without behavioral disturbance, psychotic disturbance, mood disturbance, and anxiety; N28.9 Disorder of kidney and ureter, unspecified; E78.5 Hyperlipidemia, unspecified; F31.9 Bipolar disorder, unspecified; E86.0 Dehydration; R74.0 Nonspecific elevation of levels of transaminase and lactic acid dehydrogenase [LDH]; Z90.5 Acquired absence of kidney; Z85.528 Personal history of other malignant neoplasm of kidney; Z87.891 Personal history of nicotine dependence; Z88.2 Allergy status to sulfonamides; Z88.5 Allergy status to narcotic agent; Z88.1 Allergy status to other antibiotic agents
CPT/HCPCS: J1650; J1940; J2543; J2930; J7030

== ENCOUNTER → 2019-08-11 | Outpatient (CLI) | payer MEDICARE, BC, MEDICAID ==
[2019-08-10 14:19] VITALS: BP 163/75
[~2019-08-11] MED LIST changes: +ASPIRIN 32325 MG/TAB PO; +AUGMENTIN 875-1 EAC1 PO; +MUCUS RELIEF400 M1 PO; +PREDNISONE20 M1 PO
== END ==
LOC: LAB 05:20 → EDSTATUS 11:32
DX: E87.6 Hypokalemia (principal)

== ENCOUNTER → 2019-08-11 | Outpatient (CLI) | payer MEDICARE, BC, MEDICAID ==
[2019-08-10 14:19] VITALS: BP 163/75
[~2019-08-11] MED LIST changes: -ARTIFICIAL TEAR1512 OP; +ARTIFICIAL TEAR1512 OU; +GOOD NEIGH1200 MG/15 PO; +MIRALAX17 GM PO; +MYLANTA MAXIMU355 M1 PO
== END ==
LOC: RAD 14:28
DX: I08.1 Rheumatic disorders of both mitral and tricuspid valves (principal)

== ENCOUNTER 2019-08-29 16:08 | Emergency (ER) | payer MEDICARE, BC, MEDICAID ==
[~2019-08-29] VITALS: Wt 51.8 kg
[~2019-08-29 16:08] MED LIST changes: -GOOD NEIGH1200 MG/15 PO; -MIRALAX17 GM PO; -MYLANTA MAXIMU355 M1 PO
[2019-08-29 17:12] LABS: ALBUMIN 3.1 g/dL (3.4-4.8)
[2019-08-29 17:13] LABS: POTASSIUM 4.8 mmol/L (3.5-5.1)
[2019-08-29 17:14] LABS: CALCIUM 9.9 mg/dL (8.3-10.5)
[2019-08-29 17:15] LABS: TOTAL PROTEIN 6.6 g/dL (6.2-8.1)
[2019-08-29] MEDS ORDERED: LOPRESSOR 225 MG/TAB PO (17:16)
[2019-08-29] MEDS ORDERED: HALDOL .5M0.5 MG/TAB PO (17:16)
[2019-08-29 17:17] LABS: EOS # 0.2 (0.04-0.40); EOS % 2.2 % (1.0-5.0); HEMOGLOBIN 9.1 g/dL (12.5-16.0); LYMPH# 2.3 (1.50-4.00); MEAN CELL VOLUME 92 fl (78-100); MEAN CORPUSCULAR HEMOGLOBIN 29 pg (27-31); MEAN CORPUSCULAR HGB CONC 31 g/dL (33-37); MEAN PLATELET VOLUME 10.5 fl (7.4-10.4); MONO # 0.5 (0.20-0.80); NEU # 6.4 (1.40-6.50); PLATELET COUNT 353 K/mm3 (130-400); RED BLOOD COUNT 3.17 M/mm3 (4.10-5.30); RED CELL DISTRIBUTION WIDTH 14.8 % (11.5-14.5); TOTAL BILIRUBIN 0.2 mg/dL (0.2-1.2); WHITE BLOOD COUNT 9.4 K/mm3 (4.8-10.8)
[2019-08-29] MEDS ORDERED: GOOD NEIGH1200 MG/15 PO (17:49)
[2019-08-29] MEDS ORDERED: MIRALAX17 GM PO (17:51)
[2019-08-29] MEDS ORDERED: MYLANTA MAXIMU355 M1 PO (17:52)
[2019-08-29] MEDS ORDERED: NORVASC 5MG5 MG/TAB PO (17:53)
[2019-08-29] MEDS ORDERED: SYNTHROID0.05 MG PO (17:54)
[2019-08-29 20:19] VITALS: BP 141/74
[2019-08-29 20:20] LABS: URINE APPEARANCE HAZY; URINE BILIRUBIN NEGATIVE (NEGATIVE); URINE BLOOD NEGATIVE (NEGATIVE); URINE COLOR YELLOW; URINE GLUCOSE NEGATIVE (NEGATIVE); URINE KETONE NEGATIVE (NEGATIVE); URINE NITRATE NEGATIVE (NEGATIVE); URINE PROTEIN(semi-quant) TRACE mg/dL (NEGATIVE); URINE UROBILINOGEN NORMAL (NORMAL)
[2019-08-29 20:21] LABS: URINE LEUKOCYTE ESTERASE 1+ (NEGATIVE)
== END 2019-08-29 20:32 | disposition home or self-care (01) ==
LOC: ED 16:08
PROVIDERS: Nurse Practitioner Family
DX: I12.9 Hypertensive chronic kidney disease with stage 1 through stage 4 chronic kidney disease, or unspecified chronic kidney disease (principal); N18.9 Chronic kidney disease, unspecified; N17.9 Acute kidney failure, unspecified; E86.0 Dehydration; J44.9 Chronic obstructive pulmonary disease, unspecified; E03.9 Hypothyroidism, unspecified; F41.9 Anxiety disorder, unspecified; F31.9 Bipolar disorder, unspecified; F03.90 Unspecified dementia, unspecified severity, without behavioral disturbance, psychotic disturbance, mood disturbance, and anxiety; D64.9 Anemia, unspecified; I73.9 Peripheral vascular disease, unspecified; Z87.891 Personal history of nicotine dependence
CPT/HCPCS: J7030

== ENCOUNTER → 2019-09-06 | Outpatient (CLI) | payer MEDICARE, BC, MEDICAID ==
[2019-08-29 20:19] VITALS: BP 141/74
[~2019-09-06] MED LIST changes: +GOOD NEIGH1200 MG/15 PO; +MIRALAX17 GM PO; +MYLANTA MAXIMU355 M1 PO
== END ==
LOC: LAB 05:26 → EDSTATUS 09:51
DX: E03.9 Hypothyroidism, unspecified (principal)